=== PATIENT | female | born 1955 | race Caucasian/White ===

== ENCOUNTER 2016-05-20 15:45 | Inpatient (IN) | payer BC, OTHER ==
[2016-05-20] VITALS (7 sets, daily range): BP systolic 95–109; BP diastolic 38–62; PULSE 62–70; TEMP 36.7–37.5; O2SAT 98–100; Ht 175.3 cm; Wt 64.8 kg
[~2016-05-20] VITALS: Ht 175.3 cm; Wt 64.8 kg
[2016-05-20] MEDS ORDERED: HYDR25TA4 PO (16:41)
[2016-05-20] MEDS ORDERED: LISI-791 PO (16:41)
[2016-05-20] MEDS ORDERED: SOY40TAB5 PO (16:42)
[2016-05-20] MEDS ORDERED: POTA1TAB PO (16:44)
[2016-05-20 16:45] LABS: PARTIAL THROMBOPLASTIN RATIO 0.8; PROTHROMBIN TIME (PATIENT) 10.3 SECONDS (9.0-12.0)
[2016-05-20] MEDS ORDERED: OMEG10007 PO (16:45)
[2016-05-20 16:46] LABS: HEMATOCRIT 15.8 % (37-47); MEAN CELL VOLUME 67.5 fL (80-100); MEAN CORPUSCULAR HEMOGLOBIN 16.7 pg (25-34); MEAN CORPUSCULAR HGB CONC 24.7 g/dl (32-36); PLATELET COUNT 286 K/uL (130-400); RED BLOOD COUNT 2.34 M/uL (4.2-5.4); WHITE BLOOD COUNT 5.01 K/uL (4.8-10.8)
[2016-05-20] MEDS ORDERED: MULT-580 PO (16:48)
[2016-05-20] MEDS ORDERED: ALBUTEROL PROAIR INH (16:49)
[2016-05-20] MEDS ORDERED: ZINC25CA PO (16:51)
[2016-05-20] MEDS ORDERED: ONDA4TAB10 SL (16:52)
[2016-05-20 16:54] LABS: ALT/SGPT 22 U/L (12-78); BLOOD UREA NITROGEN 28 mg/dl (7-18); BUN/CREATININE RATIO 28.1 (10-20); CALCIUM 8.3 mg/dl (8.5-10.1); CARBON DIOXIDE 20 mmol/L (21-32); CHLORIDE 106 mmol/L (98-107); GLUCOSE 87 mg/dl (70-99); POTASSIUM 4.2 mmol/L (3.5-5.1); SODIUM 139 mmol/L (136-145)
[2016-05-20] MEDS ORDERED: SIME80TA PO (16:54)
[2016-05-20] MEDS ORDERED: PROM1SUP19 PR (16:55)
[2016-05-20 16:59] LABS: ALKALINE PHOSPHATASE 82 U/L (45-117); AST/SGOT 12 U/L (15-37)
[2016-05-20 17:03] LABS: ANISOCYTOSIS PRESENT; BASO ABS # 0.15 K/uL (0-0.2); COMPLETE YES; EOS % 1.6 %; HYPOCHROMIA PRESENT; IG% 0.4 %; LYMPH % 29.1 %; LYMPH ABS # 1.46 K/uL (1.2-3.4); MICROCYTOSIS PRESENT; MONO % 10.8 %; NEUT % 55.1 %; TEAR DROP CELLS 1+
[2016-05-20] MEDS ORDERED: ACETAMINOPHEN 325 MG TAB PO STA (17:15)
[2016-05-20] MEDS ORDERED: ONDANSETRON INJ 2 MG/ML 2 ML VIAL IV PRN (19:00)
[2016-05-20] MEDS ORDERED: ALBU18002 INH (19:21)
[2016-05-20] MEDS ORDERED: ZINC1TAB PO (19:21)
--- NOTE | 2016-05-20 19:47 | EMERGENCY ROOM VISIT NOTE ---
History Report prepared by Sergio: Audra Rodgers Under the Supervision of: Dr. Tom Fleimng M.D. First contact with patient: 15:54 Chief Complaint: ABNORMAL LABS Stated Complaint: EXTREMELY LOW HEMOGLOBIN History of Present Illness The patient is a 61 year old female who presents to the Emergency Room with complaints of abnormal lab results. She reports she had a fasting blood test this morning and her Hemoglobin was found to be 3.9, so the clinic called her and recommended she come to the ED immediately. She states she had the lab work drawn because of experiencing recent palpitations. She reports she also had an EKG at her doctors office recently, but states it proved to be unremarkable. The patient states she feels well here in the ED. 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 She denies any recent chest pain, shortness of breath or weakness. The patient has a history of gastric bypass surgery in 2002 and lost "over 100 pounds". She reports a coworker did tell her a few months ago that she looked "jaundiced". She denies any recent yellowing to her eyes or noticing any recent changes in her skin color. She denies any recent melena, hematochezia or urinary symptoms. Her urine is normal in color. She states she was diabetic before undergoing gastric bypass, but that has resolved since undergoing the surgery. She denies any recent abdominal pain. 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 A total of 10 systems reviewed and were otherwise negative. Past Medical & Surgical Medical Problems: (1) Dyslipidemia (2) HTN (hypertension) Surgical Problems: (1) History of gastric bypass (2) History of hysterectomy (3) History of Ina-en-Y gastric bypass (4) Hx of tubal ligation Social History Smoking Status: Never Smoker Alcohol Use: occasionally Drug Use: none Marital Status: Housing Status: lives alone Occupation Status: employed Current/Historical Medications Scheduled Fish Oil ([place]-3), 2 CAP PO DAILY Hydrochlorothiazide (Hctz), 25 MG PO DAILY Lisinopril (Zestril), 10 MG PO DAILY Multiple Vitamins W/ Minerals (Hair/Skin/Nails), 2 TABS PO DAILY Ondasetron Odt (Zofran Odt), 8 MG SL Q6H Potassium Gluconate (Potassium Gluconate), 595 MG PO DAILY Soy Isoflavone (Soy Isoflavones), 40 MG PO DAILY Zinc Gluconate (Zinc), 50 MG PO DAILY Scheduled PRN Albuterol Sulfate (Proair Respiclick), 2 PUFF INH Q6H PRN for SOB/Wheezing Promethazine (Phenergan Suppository), 25 MG LA Q6H PRN for Nausea Simethicone (Bicarsim), 80 MG PO QID PRN for Gas or Constipation Allergies Coded Allergies: No Known Allergies (Unverified , 05/20/16) Physical Exam Vital Signs Date Time Temp Pulse Resp B/P Pulse Ox O2 Delivery O2 Flow Rate FiO2 05/20/16 18:53 37.5 67 17 108/50 100 05/20/16 18:30 67 18 105/60 100 Room Air 05/20/16 17:47 75 22 108/55 97 Room Air 05/20/16 17:06 71 19 104/52 99 Room Air 05/20/16 16:34 65 05/20/16 16:19 66 22 94/45 100 Room Air 05/20/16 15:48 37.3 77 15 99/47 98 Room Air Physical Exam Constitutional: Vital signs reviewed. Eyes: Pupils are equal round reactive to light. Conjunctiva are noninjected. ENT: Pharynx is clear without erythema or exudate. Mucous membranes are moist. Neck supple without meningeal signs. Respiratory: Clear to auscultation bilaterally. Breath sounds are equal bilaterally. Cardiovascular: Regular rate and rhythm. No rubs or gallops. GI: Soft, nondistended and nontender. Bowel sounds are present. Rectal: Guaiac negative brown stool. Musculoskeletal: No peripheral edema. No lower extremity tenderness. Integumentary: No cyanosis. Neurological: The patient is awake and alert. No focal deficits. Psychiatric: Normal affect. Medical Decision & Procedures Laboratory Results 05/20/16 16:10 Red Blood Count 2.34, Mean Corpuscular Volume 67.5, Mean Corpuscular Hemoglobin 16.7, Mean Corpuscular Hemoglobin Concent 24.7, Mean Platelet Volume 8.0, Neutrophils (%) (Auto) 55.1, Lymphocytes (%) (Auto) 29.1, Monocytes (%) (Auto) 10.8, Eosinophils (%) (Auto) 1.6, Basophils (%) (Auto) 3.0, Neutrophils # (Auto ) 2.76, Lymphocytes # (Auto) 1.46, Monocytes # (Auto) 0.54, Eosinophils # (Auto ) 0.08, Basophils # (Auto) 0.15 05/20/16 16:10 Test 05/20/16 16:10 05/20/16 18:10 White Blood Count 5.01 K/uL (4.8-10.8) Red Blood Count 2.34 M/uL (4.2-5.4) Hemoglobin 3.9 g/dL (12.0-16.0) Hematocrit 15.8 % (37-47) Mean Corpuscular Volume 67.5 fL (80-100) Mean Corpuscular Hemoglobin 16.7 pg (25-34) Mean Corpuscular Hemoglobin Concent 24.7 g/dl (32-36) Platelet Count 286 K/uL (130-400) Mean Platelet Volume 8.0 fL (7.4-10.4) Neutrophils (%) (Auto) 55.1 % Lymphocytes (%) (Auto) 29.1 % Monocytes (%) (Auto) 10.8 % Eosinophils (%) (Auto) 1.6 % Basophils (%) (Auto) 3.0 % Neutrophils # (Auto) 2.76 K/uL (1.4-6.5) Lymphocytes # (Auto) 1.46 K/uL (1.2-3.4) Monocytes # (Auto) 0.54 K/uL (0.11-0.59) Eosinophils # (Auto) 0.08 K/uL (0-0.5) Basophils # (Auto) 0.15 K/uL (0-0.2) RDW Standard Deviation 64.6 fL (36.4-46.3) RDW Coefficient of Variation 26.9 % (11.5-14.5) Immature Granulocyte % (Auto) 0.4 % Immature Granulocyte # (Auto) 0.02 K/uL (0.00-0.02) Hypochromasia PRESENT Anisocytosis PRESENT Microcytosis PRESENT Tear Drop Cells 1+ Absolute Reticulocyte Count 0.03 10^6/uL (0.02-0.10) Percent Reticulocyte Count 1.3 % (0.5-2.0) Prothrombin Time 10.3 SECONDS (9.0-12.0) Prothromb Time International Ratio 1.0 (0.9-1.1) Activated Partial Thromboplast Time 21.6 SECONDS (21.0-31.0) Partial Thromboplastin Ratio 0.8 Anion Gap 13.0 mmol/L (3-11) Est Creatinine Clear Calc Drug Dose 63.3 ml/min Estimated GFR () 71.4 Estimated GFR (Non- 61.6 BUN/Creatinine Ratio 28.1 (10-20) Calcium Level 8.3 mg/dl (8.5-10.1) Iron Level 10 mcg/dl (35-150) Total Iron Binding Capacity 503 mcg/dl (250-450) Transferrin 389 mg/dl (200-360) Transferrin % Saturation 2 % (15-50) Ferritin 1.0 ng/ml (8.0-388.0) Total Bilirubin 0.4 mg/dl (0.2-1) Direct Bilirubin 0.2 mg/dl (0-0.2) Aspartate Amino Transf (AST/SGOT) 12 U/L (15-37) Alanine Aminotransferase (ALT/SGPT) 22 U/L (12-78) Alkaline Phosphatase 82 U/L (45-117) Troponin I < 0.015 ng/ml (0-0.045) Total Protein 7.1 gm/dl (6.4-8.2) Albumin 3.5 gm/dl (3.4-5.0) 25-Hydroxy Vitamin D Total 8.7 ng/ml (30-100) Parathyroid Hormone (Intact) 212.7 pg/mL (11.1-79.5) Laboratory results as reviewed by me. Medications Administered Medications (Trade) Dose Ordered Sig/Ric Route Start Time Stop Time Status Last Admin Dose Admin Acetaminophen (Tylenol Tab) 650 mg NOW STAT PO 05/20/16 17:15 05/20/16 17:17 DC 05/20/16 17:55 650 MG ECG Indication: other (low Hemoglobin) Rate (beats per minute): 65 Rhythm: normal sinus (normal sinus rhythm) Findings: RBBB (incomplete RBBB), other (limited due to baseline artifact) ED Course 1556: The patient was evaluated in room C6. A complete history and physical exam was performed. 1625: I reevaluated the patient. I discussed her blood test results and explained to her if these are verified with our repeat tests here in the ED, she would need to be admitted to the hospital for further evaluation. She states she does not want to be admitted. 1657: I reevaluated the patient. I had a long discussion with the patient regarding her findings. I strongly recommended admission to the hospital. She continues to decline admission, fully understanding that she could or become permanently debilitated. She does consent to blood transfusion. 1715: Acetaminophen 650 mg PO. 1730: I reevaluated the patient. Her BP has improved, although she is slightly hypotensive. After talking to her son, she has agreed to stay in the hospital. 1742: I discussed the patients case with CRISTHIAN Jung, [facility] Hospitalist. The patient will be further evaluated. 1830: I reevaluated the patient. Her blood pressure is currently 105/60. Blood bank has not sent the blood up yet. The hospitalist is in the room examining the patient. 1925: I reevaluated the patient. Blood is transfusing. Her blood pressure is 95 systolic. The patient has no current complaints and has had no reaction to the transfusion. Medical Decision This is a 61-year-old female presents with a low hemoglobin. I did perform a limited focused review of portions of the patient's old chart on the electronic medical record. The patient has had no recent pertinent visits to this hospital. I did obtain records from the [facility] system. She had a hemoglobin drawn today which was 3.9 at 10:30 this morning. Platelet count was normal. She had markedly hypochromia. She also had LFTs which were unremarkable. She had an exercise stress echocardiogram which she could not complete due to fatigue. She had markedly abnormal horizontal downsloping ST depressions in the inferior leads and lateral leads. There was no left ventricular wall motion abnormality. I did evaluate the patient as noted above. IV access was established. The patient was placed on a continuous sheet metal mechanic. I did order and personally review the patient's 12-lead EKG as described above. After obtaining consent for blood transfusion I did order a type and cross. I did order and review the patient's blood work as noted in the electronic medical record. Her hemoglobin is less than 4. I did order a transfusion for 2 units of blood. I did premedicate her with Tylenol. I did reassess her multiple times while in the emergency department. She did begin her transfusion down here in the emergency department. I did have a long discussion with her about hospitalization. Initially she didn't want to stay in the hospital but later acquiesced. I did discuss the case with the hospitalist and trimming caser. Consults Time Called: 1738 Consulting Physician: C[facility]HIAN Jung [facility] Returned Call: 1742 I discussed the patients case with CRISTHIAN Jung [facility]. The patient will be further evaluated. Impression Primary Impression: Symptomatic anemia Additional Impression: Hypotension Critical Care I have personally spent 35 minutes of critical care time in the direct management of this patient. This includes bedside care, interpretation of diagnostic studies, and testing, discussion with consultants, patient, and family members, and other required patient management activities. This 35 minutes is in excess of all separately billable procedures. Scribe Attestation The scribe's documentation has been prepared under my direct and personally reviewed by me in its entirety. I confirm that the note above accurately reflects all work, treatment, procedures, and medical decision making performed by me. Departure Information Dispostion Being Evaluated By Hospitalist Referrals No Doctor, Assigned (PCP) Patient Instructions My [facility] Problem Qualifiers Additional Impression: Hypotension Hypotension type: unspecified hypotension type Qualified Codes: I95.9 - Hypotension, unspecified
--- NOTE | 2016-05-20 20:23 | History and Physical ---
History & Physical Date & Time of Service: May 20, 2016 at 19:45 Chief Complaint: Sent by PCP for Low Hemoglobin Primary Care Physician: Dr. Salazar History of Present Illness 61 year old female who presents to the ER by referral of PCP for low hemoglobin. Patient reports she has been getting palpitations for the past 2 years. She reports she only noted them with exertion. She was seen by her PCP recently for this complaint. She was referred to cardiology who did a stress test and holter. Holter monitor showed PACs, PVCs, and two short runs of PSVT. Patient was unable to complete the test and also had ST depressions noted. Patient was then scheduled for a cardiac CT. Patient had labs drawn today that were ordered by her PCP that showed hgb 3.9. Patient was then referred to the ER for further evaluation. Patient notes a mild decrease in her activity tolerance but aside from the palpitations she denies other symptoms. No chest pain or chest pressure. She developed lower extremity edema last year and was placed on HCTZ and low Na+ diet and had improvement in the edema. She notes a 20 pound weight loss last year after making the dietary changes. She denies shortness of breath, lightheadedness, dizziness, diaphoresis, or syncopal events. No abdominal pain, nausea, vomiting, diarrhea, or constipation. She notes that after decreasing her salt intake last year, her stools are now anesthesiology medical doctor in color and softer. No BRBPR or dark tarry stools. No fever or chills. She denies urinary symptoms. No recent travel. She had her last mammogram 2015. Last colonoscopy was in 2009. She has history of gastric bypass and has not had B12 injections in several years. In the ER, labs show hgb 3.9. Patient is hemodynamically stable. She has been ordered 2 units of PRBC. Past Medical/Surgical History Medical Problems: (1) Dyslipidemia Status: Chronic (2) HTN (hypertension) Status: Chronic (3) PSVT (paroxysmal supraventricular tachycardia) Status: Chronic Surgical Problems: (1) History of hysterectomy Status: Chronic (2) History of Ina-en-Y gastric bypass Status: Chronic (3) Hx of tubal ligation Status: Chronic Family History FH: liver cancer FATHER ( at age 70) FH: lung cancer MOTHER ( at age 48, was heavy smoker) Social History Smoking Status: Never Smoker Alcohol Use: none Immunizations History of Influenza Vaccine: Yes Influenza Vaccine Date: Dec 13, 2015 History of Tetanus Vaccine?: Yes Tetanus Immunization Date: Jun 17, 2008 Multi-Drug Resistant Organisms History of MDRO: No Allergies Coded Allergies: No Known Allergies (Unverified , 05/20/16) Home Medications Scheduled Fish Oil ([place]-3), 2 CAP PO DAILY Hydrochlorothiazide (Hctz), 25 MG PO DAILY Lisinopril (Zestril), 10 MG PO DAILY Multiple Vitamins W/ Minerals (Hair/Skin/Nails), 2 TABS PO DAILY Ondasetron Odt (Zofran Odt), 8 MG SL Q6H Potassium Gluconate (Potassium Gluconate), 595 MG PO DAILY Soy Isoflavone (Soy Isoflavones), 40 MG PO DAILY Zinc Gluconate (Zinc), 50 MG PO DAILY Scheduled PRN Albuterol Sulfate (Proair Respiclick), 2 PUFF INH Q6H PRN for SOB/Wheezing Promethazine (Phenergan Suppository), 25 MG PA Q6H PRN for Nausea Simethicone (Bicarsim), 80 MG PO QID PRN for Gas or Constipation Review of Systems 10 point review of systems was completed with the pertinent positives and negatives noted per the HPI Physical Exam Vital Signs Date Time Temp Pulse Resp B/P Pulse Ox O2 Delivery O2 Flow Rate FiO2 05/20/16 19:25 37.0 65 17 109/54 99 05/20/16 19:14 37.0 70 16 95/47 98 05/20/16 19:00 37.3 67 14 106/40 98 05/20/16 18:53 37.5 67 17 108/50 100 05/20/16 18:30 67 18 105/60 100 Room Air 05/20/16 17:47 75 22 108/55 97 Room Air 05/20/16 17:06 71 19 104/52 99 Room Air 05/20/16 16:34 65 05/20/16 16:19 66 22 94/45 100 Room Air 05/20/16 15:48 37.3 77 15 99/47 98 Room Air General Appearance: no apparent distress Head: normocephalic Eyes: normal inspection ENT: hearing grossly normal Neck: supple, no JVD Respiratory/Chest: lungs clear, normal breath sounds, no respiratory distress Cardiovascular: regular rate, rhythm, no edema, normal peripheral pulses Abdomen/GI: normal bowel sounds, non tender, soft Extremities/Musculoskelatal: normal inspection, no calf tenderness Neurologic/Psych: no motor/sensory deficits, alert, normal mood/affect, oriented x 3 Skin: normal color, warm/dry Diagnostics Laboratory Results Results Past 24 Hours Test 05/20/16 16:10 05/20/16 18:10 Range/Units White Blood Count 5.01 4.8-10.8 K/uL Red Blood Count 2.34 4.2-5.4 M/uL Hemoglobin 3.9 12.0-16.0 g/dL Hematocrit 15.8 37-47 % Mean Corpuscular Volume 67.5 80-100 fL Mean Corpuscular Hemoglobin 16.7 25-34 pg Mean Corpuscular Hemoglobin Concent 24.7 32-36 g/dl Platelet Count 286 130-400 K/uL Mean Platelet Volume 8.0 7.4-10.4 fL Neutrophils (%) (Auto) 55.1 % Lymphocytes (%) (Auto) 29.1 % Monocytes (%) (Auto) 10.8 % Eosinophils (%) (Auto) 1.6 % Basophils (%) (Auto) 3.0 % Neutrophils # (Auto) 2.76 1.4-6.5 K/uL Lymphocytes # (Auto) 1.46 1.2-3.4 K/uL Monocytes # (Auto) 0.54 0.11-0.59 K/uL Eosinophils # (Auto) 0.08 0-0.5 K/uL Basophils # (Auto) 0.15 0-0.2 K/uL RDW Standard Deviation 64.6 36.4-46.3 fL RDW Coefficient of Variation 26.9 11.5-14.5 % Immature Granulocyte % (Auto) 0.4 % Immature Granulocyte # (Auto) 0.02 0.00-0.02 K/uL Hypochromasia PRESENT Anisocytosis PRESENT Microcytosis PRESENT Tear Drop Cells 1+ Absolute Reticulocyte Count 0.03 0.02-0.10 10^6/uL Percent Reticulocyte Count 1.3 0.5-2.0 % Prothrombin Time 10.3 9.0-12.0 SECONDS Prothromb Time International Ratio 1.0 0.9-1.1 Activated Partial Thromboplast Time 21.6 21.0-31.0 SECONDS Partial Thromboplastin Ratio 0.8 Sodium Level 139 136-145 mmol/L Potassium Level 4.2 3.5-5.1 mmol/L Chloride Level 106 98-107 mmol/L Carbon Dioxide Level 20 21-32 mmol/L Anion Gap 13.0 3-11 mmol/L Blood Urea Nitrogen 28 7-18 mg/dl Creatinine 1.00 0.60-1.20 mg/dl Est Creatinine Clear Calc Drug Dose 63.3 ml/min Estimated GFR () 71.4 Estimated GFR (Non- 61.6 BUN/Creatinine Ratio 28.1 10-20 Random Glucose 87 70-99 mg/dl Calcium Level 8.3 8.5-10.1 mg/dl Iron Level 10 35-150 mcg/dl Total Iron Binding Capacity 503 250-450 mcg/dl Transferrin 389 200-360 mg/dl Transferrin % Saturation 2 15-50 % Ferritin 1.0 8.0-388.0 ng/ml Total Bilirubin 0.4 0.2-1 mg/dl Direct Bilirubin 0.2 0-0.2 mg/dl Aspartate Amino Transf (AST/SGOT) 12 15-37 U/L Alanine Aminotransferase (ALT/SGPT) 22 12-78 U/L Alkaline Phosphatase 82 45-117 U/L Troponin I < 0.015 0-0.045 ng/ml Total Protein 7.1 6.4-8.2 gm/dl Albumin 3.5 3.4-5.0 gm/dl 25-Hydroxy Vitamin D Total 8.7 30-100 ng/ml Parathyroid Hormone (Intact) 212.7 11.1-79.5 pg/mL Impression Assessment and Plan PROFOUND ANEMIA - admit to tele - patient presenting with history of palpitations for 2 years; outpatient labs showed hgb 3.9 - patient hemodynamically stable - iron studies complete that support MOOKIE - last colonoscopy 2009 - hemorrhoids, 1 polyp removed (negative path) - hx of gastric bypass - malabsorption likely contributing - will start with 2 units PRBC, follow H/H post transfusion - stool heme negative in ED, will start empiric PPI BID VIT D DEFICIENCY - start replacement - PTH noted to be high, likely due to low Vit D - 50,000 units twice weekly x 12 doses; can recheck PTH once Vit D replaced HTN - BP on the lower side due to hypovolemia - holding HCTZ and Lisinopril ABNORMAL STRESS TEST, PSVT - hx of recent stress test - was unable to complete and had ST depressions noted (? due to profound anemia) - has outpatient cardiac CT scheduled - on Holter patient had PACs, PVCs, and short run of PSVT - per review of record , patient was instructed to stop Lisinopril and start metoprolol succinate - she has not made this medication change yet - will need to re-evaluate the above once patient's hgb is improved DVT PROPHYLAXIS - SCDs due to anemia DISPO - In my clinical judgment this beneficiary meets acute admission criteria, established by [facility], that includes being hospitalized through two midnights. ADDENDUM: I have seen and examined the patient and have discussed the case with the provider above. I agree with the assessment and plan as stated. This is consistent with a chronic process as the patient admits to not feeling well for two years now. No active bleeding reported and there is hemodynamic stability. She is severely iron deficient. Annual labs post-bariatric surgery have not been checked in several years. All ordered except for zinc and copper as patient is on supplementation. GI consult placed for the following reasons-- appreciate consider endoscopy for quick view of surgical anastomoses, or other source of chronic bleed, ease of quick biopsy for H pylori. Agree with transfusing two units and holding two until reassessment. She is otherwise asymptomatic without chest pain, shortness of breath or significant fatigue. Physical exam is unremarkable. DO Luis Level of Care Telemetry Resuscitation Status FULL RESUSCITATION VTE Prophylaxis VTE Risk Assessment Done? Y/N: Yes Risk Level: Moderate Given or contraindicated: SCD's, Contraindicated Social Service Consult None Apply
[2016-05-20] MEDS ORDERED: ERGOCALCIFEROL 50,000 INTER.UNIT CAP PO SCH (21:00)
[2016-05-20] MEDS ORDERED: ACETAMINOPHEN 325 MG TAB PO PRN (21:00)
[2016-05-20] MEDS: PANTOprazole INJ 40 MG in SYRINGE 0 ML IV SCH (21:04)
[2016-05-21] VITALS (18 sets, daily range): BP systolic 93–115; BP diastolic 41–69; PULSE 50–62; TEMP 36.5–37.3; O2SAT 97–100
[2016-05-21 00:12] LABS: HEMATOCRIT 19.1 % (37-47)
[2016-05-21 07:44] LABS: HEMATOCRIT 24.9 % (37-47); MEAN CELL VOLUME 74.1 fL (80-100); MEAN CORPUSCULAR HEMOGLOBIN 22.6 pg (25-34); MEAN CORPUSCULAR HGB CONC 30.5 g/dl (32-36); MEAN PLATELET VOLUME 8.1 fL (7.4-10.4); PLATELET COUNT 169 K/uL (130-400); RED BLOOD COUNT 3.36 M/uL (4.2-5.4); WHITE BLOOD COUNT 4.45 K/uL (4.8-10.8)
[2016-05-21] MEDS ORDERED: PNEUMOCOCCAL ADMINISTRATION CHARGE ONE (08:00)
[2016-05-21] MEDS ORDERED: INFLUENZA VIRUS QUAD VACCINE 0.5 ML SYR IM. ONE (08:00)
[2016-05-21] MEDS ORDERED: PNEUMOCOCCAL POLYSACCHARIDES 25 MCG/0.5 ML VIAL/SYR IM. ONE (08:00)
[2016-05-21] MEDS ORDERED: INFLUENZA ADMINISTRATION CHARGE ONE (08:00)
[2016-05-21 08:11] LABS: BUN/CREATININE RATIO 27.1 (10-20); CALCIUM 8.1 mg/dl (8.5-10.1); CREATININE 0.8 mg/dl (0.60-1.20); POTASSIUM 4.4 mmol/L (3.5-5.1)
[2016-05-21] MEDS: OMEGA-3 (PURIFIED FISH OIL) 1 GM CAP PO SCH (08:15)
[2016-05-21] MEDS: PANTOprazole INJ 40 MG in SYRINGE 0 ML IV SCH (08:15)
[2016-05-21] MEDS: CEROVITE ADV FORMULA TAB PO SCH (08:15)
[2016-05-21] MEDS ORDERED: IRON DEXTRAN IV ONE (10:45)
--- NOTE | 2016-05-21 11:19 | Progress Note ---
Internal Med Progress Note Date of Service: May 21, 2016. Provider Documentation: SUBJECTIVE: Patient is doing well. Denies any complaints of palpitations, SOB, Fatigue (Not worse from baseline) Says she doesn't feel much different from prior to admission after blood transfusions and HB going up OBJECTIVE: Vital Signs-as noted below Exam: General-AAOX3, no distress Eyes-Pallor +, No icterus Neck-Supple, NO JVD Lungs-AEBE, no distress Heart-S1, S2 normal, no murmurs Abdomen-Soft, non tender, non distended, BS present Extremities-No edema Lab data as noted below. ASSESSMENT & PLAN: SEVERE IRON DEFICIENCY ANEMIA : Patient was sent from PCP office for HB 3.9. Patient had gastric bypass done in 2002, does not follow up regularly with PCP, doesnt take supplements. Iron studies supportive of Iron deficiency anemia with Ferritin - 1, Iron-10, TIBC -500. Likely this is secondary to malabsorption secondary to gastric bypass with inadequate PCP and Labs follow up. Given the fact she is not much symptomatic with HB 3.9, this has been going on for a long time. No signs of GI bleeding -S/P 4 units PRBCs since admission --> HB 7.6 -Will give IV Venofer x 1 dose today due to malabsorption issue/severity of iron deficiency anemia -Work up- Iron studies as above--> Iron deficiency, Vit D 8.7 with PTH 212, Vitamin B12-393, Colonoscopy in 2009- 1 polyp removed, hemorrhoids. No signs of active bleeding, but would consider Endoscopy/Colonoscopy outpatient if anemia persists. 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 -Recommended regular outpatient blood work/PCP follow ups. Counseling done HTN : - BP on the lower side due to hypovolemia - holding HCTZ and Lisinopril ABNORMAL STRESS TEST, PSVT : - hx of recent stress test - was unable to complete and had ST depressions noted (? due to profound anemia) - has outpatient cardiac CT scheduled - on Holter patient had PACs, PVCs, and short run of PSVT - per review of record , patient was instructed to stop Lisinopril and start metoprolol succinate - she has not made this medication change yet - Outpatient work up /follow up DVT PROPHYLAXIS : - SCDs due to anemia DISPOSITION : - Ok to transfer to [facility]-surg - Monitor Vital Signs: Date Time Temp Pulse Resp B/P Pulse Ox O2 Delivery O2 Flow Rate FiO2 05/21/16 08:00 Room Air 05/21/16 07:58 36.6 53 18 115/69 100 Room Air 05/21/16 05:30 37.3 53 18 94/52 97 05/21/16 05:00 37.2 62 20 95/52 97 05/21/16 04:30 37.3 58 18 101/62 98 05/21/16 04:15 37.0 54 20 108/63 97 05/21/16 04:00 Room Air 05/21/16 03:34 36.7 56 16 102/51 99 05/21/16 03:07 36.8 56 15 100/55 100 Room Air 05/21/16 01:35 60 17 95/46 98 05/21/16 01:35 60 17 95/46 98 05/21/16 01:05 36.8 62 17 104/44 98 05/21/16 00:55 37.2 59 15 95/48 98 05/21/16 00:40 37.3 59 20 94/51 97 05/21/16 00:11 37.0 58 15 93/46 98 Room Air 05/21/16 00:00 Room Air 05/20/16 21:25 37.1 63 20 95/38 99 05/20/16 21:02 36.7 62 18 99/62 100 05/20/16 20:00 Room Air 05/20/16 19:59 Room Air 05/20/16 19:25 37.0 65 17 109/54 99 05/20/16 19:14 37.0 70 16 95/47 98 05/20/16 19:00 37.3 67 14 106/40 98 05/20/16 18:53 37.5 67 17 108/50 100 05/20/16 18:30 67 18 105/60 100 Room Air 05/20/16 17:47 75 22 108/55 97 Room Air 05/20/16 17:06 71 19 104/52 99 Room Air 05/20/16 16:34 65 05/20/16 16:19 66 22 94/45 100 Room Air 05/20/16 15:48 37.3 77 15 99/47 98 Room Air Lab Results: Results Past 24 Hours Test 05/20/16 16:10 05/20/16 18:10 05/20/16 23:50 05/21/16 07:30 Range/Units White Blood Count 5.01 4.45 4.8-10.8 K/uL Red Blood Count 2.34 3.36 4.2-5.4 M/uL Hemoglobin 3.9 5.5 7.6 12.0-16.0 g/dL Hematocrit 15.8 19.1 24.9 37-47 % Mean Corpuscular Volume 67.5 74.1 80-100 fL Mean Corpuscular Hemoglobin 16.7 22.6 25-34 pg Mean Corpuscular Hemoglobin Concent 24.7 30.5 32-36 g/dl Platelet Count 286 169 130-400 K/uL Mean Platelet Volume 8.0 8.1 7.4-10.4 fL Neutrophils (%) (Auto) 55.1 % Lymphocytes (%) (Auto) 29.1 % Monocytes (%) (Auto) 10.8 % Eosinophils (%) (Auto) 1.6 % Basophils (%) (Auto) 3.0 % Neutrophils # (Auto) 2.76 1.4-6.5 K/uL Lymphocytes # (Auto) 1.46 1.2-3.4 K/uL Monocytes # (Auto) 0.54 0.11-0.59 K/uL Eosinophils # (Auto) 0.08 0-0.5 K/uL Basophils # (Auto) 0.15 0-0.2 K/uL RDW Standard Deviation 64.6 65.2 36.4-46.3 fL RDW Coefficient of Variation 26.9 24.4 11.5-14.5 % Immature Granulocyte % (Auto) 0.4 % Immature Granulocyte # (Auto) 0.02 0.00-0.02 K/uL Hypochromasia PRESENT Anisocytosis PRESENT Microcytosis PRESENT Tear Drop Cells 1+ Absolute Reticulocyte Count 0.03 0.02-0.10 10^6/uL Percent Reticulocyte Count 1.3 0.5-2.0 % Prothrombin Time 10.3 9.0-12.0 SECONDS Prothromb Time International Ratio 1.0 0.9-1.1 Activated Partial Thromboplast Time 21.6 21.0-31.0 SECONDS Partial Thromboplastin Ratio 0.8 Sodium Level 139 141 136-145 mmol/L Potassium Level 4.2 4.4 3.5-5.1 mmol/L Chloride Level 106 111 98-107 mmol/L Carbon Dioxide Level 20 21 21-32 mmol/L Anion Gap 13.0 9.0 3-11 mmol/L Blood Urea Nitrogen 28 22 7-18 mg/dl Creatinine 1.00 0.80 0.60-1.20 mg/dl Est Creatinine Clear Calc Drug Dose 63.3 77.5 ml/min Estimated GFR () 71.4 93.5 Estimated GFR (Non- 61.6 80.7 BUN/Creatinine Ratio 28.1 27.1 10-20 Random Glucose 87 86 70-99 mg/dl Calcium Level 8.3 8.1 8.5-10.1 mg/dl Iron Level 10 35-150 mcg/dl Total Iron Binding Capacity 503 250-450 mcg/dl Transferrin 389 200-360 mg/dl Transferrin % Saturation 2 15-50 % Ferritin 1.0 8.0-388.0 ng/ml Total Bilirubin 0.4 0.2-1 mg/dl Direct Bilirubin 0.2 0-0.2 mg/dl Aspartate Amino Transf (AST/SGOT) 12 15-37 U/L Alanine Aminotransferase (ALT/SGPT) 22 12-78 U/L Alkaline Phosphatase 82 45-117 U/L Troponin I < 0.015 0-0.045 ng/ml Total Protein 7.1 6.4-8.2 gm/dl Albumin 3.5 3.4-5.0 gm/dl 25-Hydroxy Vitamin D Total 8.7 30-100 ng/ml Parathyroid Hormone (Intact) 212.7 11.1-79.5 pg/mL Vitamin B12 Level 393 211-911 pg/mL Folate 17.83 >5.38 ng/mL
[2016-05-21] MEDS ORDERED: IRON SUCROSE IV SCH (11:30)
[2016-05-21] MEDS ORDERED: SODIUM CHLORIDE 0.9% IV SCH (11:30)
[2016-05-21] MEDS: FERROUS SULFATE 325 MG TAB PO SCH (17:15)
--- NOTE | 2016-05-21 17:34 | Medical Consult ---
Consultation Note Date of Service May 21, 2016. Consultation Note Reason for consult: iron def anemia History of Present Illness 61 year old female h/o RYGB 2002 presents with palpitations, found to have Hgb 3.9 and MCV 67, ferritin of 1. 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 She has LE edema, but o/w no CHF symptoms. She denies any GI symptoms - no dark stool, rectal bleeding, abd pain, heartburn. She does take Ibuprofen regularly; she does not take iron or B12. VS on presentation unremarkable. She has received 4 U PRBC and Venofer. She had csocpy in 2009. Past Medical/Surgical History Medical Problems: (1) Dyslipidemia Status: Chronic (2) HTN (hypertension) Status: Chronic (3) PSVT (paroxysmal supraventricular tachycardia) Status: Chronic Surgical Problems: (1) History of hysterectomy Status: Chronic (2) History of Ina-en-Y gastric bypass Status: Chronic (3) Hx of tubal ligation Status: Chronic Family History FH: liver cancer FATHER ( at age 70) FH: lung cancer MOTHER ( at age 48, was heavy smoker) Social History Smoking Status: Never Smoker Alcohol Use: none Immunizations History of Influenza Vaccine: Yes Influenza Vaccine Date: Dec 13, 2015 History of Tetanus Vaccine?: Yes Tetanus Immunization Date: Jun 17, 2008 Multi-Drug Resistant Organisms History of MDRO: No Allergies Coded Allergies: No Known Allergies (Unverified , 05/20/16) Home Medications Scheduled Fish Oil ([place]-3), 2 CAP PO DAILY Hydrochlorothiazide (Hctz), 25 MG PO DAILY Lisinopril (Zestril), 10 MG PO DAILY Multiple Vitamins W/ Minerals (Hair/Skin/Nails), 2 TABS PO DAILY Ondasetron Odt (Zofran Odt), 8 MG SL Q6H Potassium Gluconate (Potassium Gluconate), 595 MG PO DAILY Soy Isoflavone (Soy Isoflavones), 40 MG PO DAILY Zinc Gluconate (Zinc), 50 MG PO DAILY Scheduled PRN Albuterol Sulfate (Proair Respiclick), 2 PUFF INH Q6H PRN for SOB/Wheezing Promethazine (Phenergan Suppository), 25 MG MA Q6H PRN for Nausea Simethicone (Bicarsim), 80 MG PO QID PRN for Gas or Constipation Review of Systems 10 point review of systems was completed with the pertinent positives and negatives noted per the HPI Physical Ex - H&P Physical Exam Vital Signs Vital Signs Past 12 Hours Date Time Temp Pulse Resp B/P Pulse Ox O2 Delivery O2 Flow Rate FiO2 05/21/16 16:00 Room Air 05/21/16 15:39 37.0 58 16 111/53 99 Room Air 05/21/16 13:50 36.8 53 14 106/62 97 Room Air 05/21/16 13:32 37.2 50 19 100 05/21/16 12:04 37.2 50 19 105/61 100 Room Air 05/21/16 12:00 Room Air 05/21/16 08:00 Room Air 05/21/16 07:58 36.6 53 18 115/69 100 Room Air General Appearance: no apparent distress Head: normocephalic Eyes: normal inspection ENT: hearing grossly normal Neck: supple, no JVD Respiratory/Chest: lungs clear, normal breath sounds, no respiratory distress Cardiovascular: regular rate, rhythm, no edema, normal peripheral pulses Abdomen/GI: normal bowel sounds, non tender, soft Extremities/Musculoskelatal: normal inspection, no calf tenderness Neurologic/Psych: no motor/sensory deficits, alert, normal mood/affect, oriented x 3 Skin: normal color, warm/dry Diagnostics - H&P Diagnostics Laboratory Results Last 24 Hours Test 05/20/16 18:10 05/20/16 23:50 05/21/16 07:30 25-Hydroxy Vitamin D Total 8.7 ng/ml Parathyroid Hormone (Intact) 212.7 pg/mL Hemoglobin 5.5 g/dL 7.6 g/dL Hematocrit 19.1 % 24.9 % White Blood Count 4.45 K/uL Red Blood Count 3.36 M/uL Mean Corpuscular Volume 74.1 fL Mean Corpuscular Hemoglobin 22.6 pg Mean Corpuscular Hemoglobin Concent 30.5 g/dl RDW Standard Deviation 65.2 fL RDW Coefficient of Variation 24.4 % Platelet Count 169 K/uL Mean Platelet Volume 8.1 fL Sodium Level 141 mmol/L Potassium Level 4.4 mmol/L Chloride Level 111 mmol/L Carbon Dioxide Level 21 mmol/L Anion Gap 9.0 mmol/L Blood Urea Nitrogen 22 mg/dl Creatinine 0.80 mg/dl Est Creatinine Clear Calc Drug Dose 77.5 ml/min Estimated GFR () 93.5 Estimated GFR (Non- 80.7 BUN/Creatinine Ratio 27.1 Random Glucose 86 mg/dl Calcium Level 8.1 mg/dl Vitamin B12 Level 393 pg/mL Folate 17.83 ng/mL Impression - H&P Impression Assessment and Plan PROFOUND ANEMIA - Presumably secondary to Fe malabsorption. Plan EGD tomorrow to r/o anastamotic ulcer. Anticipate d/c home afterwards. Plan for outpt csocpy. - Please give parenteral B12.
[2016-05-22 06:56] LABS: HEMATOCRIT 25.5 % (37-47); MEAN CELL VOLUME 76.8 fL (80-100); MEAN CORPUSCULAR HEMOGLOBIN 23.2 pg (25-34); MEAN CORPUSCULAR HGB CONC 30.2 g/dl (32-36); MEAN PLATELET VOLUME 8.7 fL (7.4-10.4); PLATELET COUNT 156 K/uL (130-400); RED BLOOD COUNT 3.32 M/uL (4.2-5.4)
[2016-05-22 07:11] VITALS: BP 107/47; PULSE 56; TEMP 37.3; O2SAT 98
[2016-05-22 07:45] LABS: BUN/CREATININE RATIO 18.6 (10-20); CALCIUM 8.3 mg/dl (8.5-10.1); CREATININE 0.71 mg/dl (0.60-1.20)
[2016-05-22] MEDS: FERROUS SULFATE 325 MG TAB PO SCH (08:41)
[2016-05-22] MEDS: OMEGA-3 (PURIFIED FISH OIL) 1 GM CAP PO SCH (08:44)
[2016-05-22] MEDS: CEROVITE ADV FORMULA TAB PO SCH (08:44)
[2016-05-22] MEDS ORDERED: IRON SUCROSE INJ 100 MG in SODIUM CHLORIDE 0.9% 100ML 100 ML IV SCH (11:00)
[2016-05-22] MEDS ORDERED: PANTOprazole INJ 40 MG in SYRINGE 0 ML IV SCH (11:00)
--- NOTE | 2016-05-22 11:20 | GI REPORT ---
Procedure Date: 05/22/2016 10:59 AM Procedure: Upper GI endoscopy Indications: Iron deficiency anemia Medicines: See the Anesthesia note for documentation of the administered medications Complications: No immediate complications. Estimated Blood Loss: Estimated blood loss: none. Procedure: Pre-Anesthesia Assessment: - ASA Grade Assessment: III - A patient with severe systemic disease. After obtaining informed consent, the endoscope was passed under direct vision. Throughout the procedure, the patient's blood pressure, pulse, and oxygen saturations were monitored continuously. The scope was introduced through the mouth, and advanced to the afferent and efferent jejunal loops. The upper GI endoscopy was accomplished without difficulty. The patient tolerated the procedure well. Findings: The examined esophagus was normal. Normal gastric pouch. There was an unremarkable gastroenteric anastamosis. The small intestine was normal. Impression: - Normal post gastric bypass anatomy. No evidence of anastamotic ulcer. Recommendation: - Discharge patient to floor. Check Hp serology and serology for celiac sprue. Sparkle London M.D. Sparkle London MD 05/22/2016 11:20:03 AM This report has been signed electronically. Note Initiated On: 05/22/2016 10:59 AM I attest to the content of the Intraoperative Record and orders documented therein, exceptions below
--- NOTE | 2016-05-22 11:35 | Anesthesiology Progress Note ---
Anesthesia Post Op Note Date & Time May 22, 2016 at 11:34 Vital Signs Pain Intensity: 0 Vital Signs Past 12 Hours Date Time Temp Pulse Resp B/P Pulse Ox O2 Delivery O2 Flow Rate FiO2 05/22/16 11:20 51 20 111/57 99 Room Air 05/22/16 10:25 37.1 53 20 113/61 100 Room Air 05/22/16 09:49 Room Air 05/22/16 07:11 37.3 56 16 107/47 98 Room Air 05/22/16 00:00 Room Air 05/21/16 23:49 57 111/65 Notes Mental Status: alert / awake / arousable, participated in evaluation Pt Amnestic to Procedure: Yes Nausea / Vomiting: adequately controlled Pain: adequately controlled Airway Patency, RR, SpO2: stable & adequate BP & HR: stable & adequate Hydration State: stable & adequate Anesthetic Complications: no major complications apparent
--- NOTE | 2016-05-22 11:49 | Progress Note ---
Progress Note Date of Service May 22, 2016. Progress Note EGD without anastamotic ulcer. Will arrange for out pt cscopy. OK for d/c today, if ok with primary service. Please d/c home on iron supplements, Folate , b12. There is no need for PPI therapy. Will check labs for Hp, copper level, and celiac sprue as outpt.
--- NOTE | 2016-05-22 13:03 | Progress Note ---
Internal Med Progress Note Date of Service: May 22, 2016. Provider Documentation: SUBJECTIVE: Patient is doing well and eager to be discharged due to concern about snow storm. Denies any complaints of palpitations, SOB, Fatigue (Not worse from baseline) Says she doesn't feel much different from prior to admission after blood transfusions and HB going up S/P EGD today and tolerating PO well OBJECTIVE: Vital Signs-as noted below Exam: General-AAOX3, no distress Eyes-Pallor +, No icterus Neck-Supple, NO JVD Lungs-AEBE, no distress Heart-S1, S2 normal, no murmurs Abdomen-Soft, non tender, non distended, BS present Extremities-No edema Lab data as noted below. ASSESSMENT & PLAN: SEVERE IRON DEFICIENCY ANEMIA : Patient was sent from PCP office for HB 3.9. Patient had gastric bypass done in 2002, does not follow up regularly with PCP, doesn't take supplements. Iron studies supportive of Iron deficiency anemia with Ferritin - 1, Iron-10, TIBC -500. Likely this is secondary to malabsorption secondary to gastric bypass with inadequate PCP and Labs follow up. Given the fact she is not much symptomatic with HB 3.9, this has been going on for a long time. No signs of GI bleeding -S/P 4 units PRBCs since admission --> HB 7.6-->7.7. Will transfuse one more unit PRBC today. -S/P EGD today- no anastomotic ulcer. GI will do Celiac sprue/Hp serology/ Copper level outpatient. Colonoscopy outpatient -Will give IV Venofer x 2nd dose today due to malabsorption issue/severity of iron deficiency anemia. To be discharged on Ferrous sulphate 325 mg PO BID, Folic acid 1 mg daily, Vitamin B12- 1000 mcg daily -Work up- Iron studies as above--> Iron deficiency, Vit D 8.7 with PTH 212, Vitamin B12-393, Colonoscopy in 2009- 1 polyp removed, hemorrhoids. No signs of active bleeding. 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 -Iron, Vit B12, Folic acid, Vit D supplements to be given on discharge. -Recommended regular outpatient blood work/PCP follow ups. Counseling done HTN : - BP on the lower side due to hypovolemia - holding HCTZ and Lisinopril and no indication on discharge as BP < 110 throughout hospital course ABNORMAL STRESS TEST, PSVT : - hx of recent stress test - was unable to complete and had ST depressions noted (? due to profound anemia) - has outpatient cardiac CT scheduled - on Holter patient had PACs, PVCs, and short run of PSVT - per review of record , patient was instructed to stop Lisinopril and start metoprolol succinate - she has not made this medication change yet - Outpatient work up /follow up DVT PROPHYLAXIS : - SCDs due to anemia DISPOSITION : Eager to be discharged Ok to discharge home after 1 unit PRBC transfusion/Venofer dose Vital Signs: Date Time Temp Pulse Resp B/P Pulse Ox O2 Delivery O2 Flow Rate FiO2 05/22/16 11:35 55 20 112/63 100 Room Air 05/22/16 11:20 51 20 111/57 99 Room Air 05/22/16 10:25 37.1 53 20 113/61 100 Room Air 05/22/16 09:49 Room Air 05/22/16 07:11 37.3 56 16 107/47 98 Room Air 05/22/16 00:00 Room Air 05/21/16 23:49 57 111/65 05/21/16 23:03 36.5 59 18 97/41 98 Room Air 101/41 05/21/16 21:25 Room Air 05/21/16 20:00 Room Air 05/21/16 16:00 Room Air 05/21/16 15:39 37.0 58 16 111/53 99 Room Air 05/21/16 13:50 36.8 53 14 106/62 97 Room Air 05/21/16 13:32 37.2 50 19 100 Lab Results: Results Past 24 Hours Test 05/22/16 06:35 Range/Units White Blood Count 4.40 4.8-10.8 K/uL Red Blood Count 3.32 4.2-5.4 M/uL Hemoglobin 7.7 12.0-16.0 g/dL Hematocrit 25.5 37-47 % Mean Corpuscular Volume 76.8 80-100 fL Mean Corpuscular Hemoglobin 23.2 25-34 pg Mean Corpuscular Hemoglobin Concent 30.2 32-36 g/dl RDW Standard Deviation 68.8 36.4-46.3 fL RDW Coefficient of Variation 24.8 11.5-14.5 % Platelet Count 156 130-400 K/uL Mean Platelet Volume 8.7 7.4-10.4 fL Sodium Level 142 136-145 mmol/L Potassium Level 4.0 3.5-5.1 mmol/L Chloride Level 109 98-107 mmol/L Carbon Dioxide Level 24 21-32 mmol/L Anion Gap 9.0 3-11 mmol/L Blood Urea Nitrogen 13 7-18 mg/dl Creatinine 0.71 0.60-1.20 mg/dl Est Creatinine Clear Calc Drug Dose 87.3 ml/min Estimated GFR () 108.1 Estimated GFR (Non- 93.2 BUN/Creatinine Ratio 18.6 10-20 Random Glucose 89 70-99 mg/dl Calcium Level 8.3 8.5-10.1 mg/dl
[2016-05-22] MEDS ORDERED: VTMD PO (13:07)
[2016-05-22] MEDS ORDERED: FLV1 PO (13:07)
[2016-05-22] MEDS ORDERED: CYAN100028 PO (13:07)
[2016-05-22] MEDS ORDERED: FRRS300 PO (13:07)
--- NOTE | 2016-05-22 13:11 | Discharge Instructions ---
Discharge Instructions Date of Service May 22, 2016. Admission Reason for Admission: Anemia Discharge Discharge Diagnosis / Problem: 1. Severe iron deficiency anemia likely secondary to malabsorption Discharge Goals Goal(s): Diagnostic testing, Therapeutic intervention, Prevent Disease Progression Activity Recommendations Activity Limitations: resume your previous activity . Instructions / Follow-Up Instructions / Follow-Up MEDICATION CHANGES: 1. New medication; Ferrous sulphate (Iron supplements) 325 mg PO BID---> should be increased to TID once able to tolerate it well 2. New medication: Vitamin B12 1000 mcg daily 3, New medication; Folic acid 1 mg daily 4. New medication; Vitamin D 97797 units once a week x 6 weeks followed by 1000 units daily 5. Discontinued HCTZ/Lisinopril as BP has been stable without being on it MONITOR: 1. Vitamin D, B12, Iron studies, Folic acid at regular intervals 2. CBC in 4 weeks, Vitamin D level in 2-3 months FOLLOW UP 1. Follow up with Dr Salaazr 05/25/16 at 11:30 AM 2. Follow up with GI for further work up/colonoscopy. They will call for follow up date Current Hospital Diet Patient's current hospital diet: Low Sodium Diet (2gm Na), AHA Diet (Heart Healthy) Discharge Diet Recommended Diet: AHA Diet (Heart Healthy) (IRON RICH DIET), Low Sodium Diet ( 2gm Na) Pending Studies Studies pending at discharge: no Medical Emergencies . Who to Call and When: Medical Emergencies: If at any time you feel your situation is an emergency, please call 911 immediately. . Non-Emergent Contact Non-Emergency issues call your: Primary Care Provider . . "Provider Documentation" section prepared by Rosy Schmid. VTE Core Measure Inpt VTE Proph given/why not?: SCD's, Contraindicated
--- NOTE | 2016-05-22 13:19 | Discharge Summary ---
Discharge Summary Date of Service May 22, 2016. Discharge Summary Admission Date: May 20, 2016 at 18:53 Discharge Date: May 22, 2016 Discharge Disposition: Home Principal Diagnosis: 1. Severe iron deficiency anemia , likely secondary to malabsorption secondary to gastric bypass 2. Vitamin D deficiency, severe secondary to above 3. Hx of gastric bypass in 2002 Secondary Diagnoses/Problems: 1. Hypertension Procedures: Tele monitoring 4 units of PRBCs EGD on 05/22/16 Consultations: GI, Dr London Pending Studies/Follow-Up: Instructions / Follow-Up Instructions / Follow-Up MEDICATION CHANGES: 1. New medication; Ferrous sulphate (Iron supplements) 325 mg PO BID---> should be increased to TID once able to tolerate it well 2. New medication: Vitamin B12 1000 mcg daily 3, New medication; Folic acid 1 mg daily 4. New medication; Vitamin D 99780 units once a week x 6 weeks followed by 1000 units daily MONITOR: 1. Vitamin D, B12, Iron studies, Folic acid at regular intervals 2. CBC in 4 weeks, Vitamin D level in 2-3 months FOLLOW UP 1. Follow up with Dr Salazar 05/25/16 at 11:30 AM 2. Follow up with GI for further work up/colonoscopy. They will call for follow up date Medication Reconciliation New Medications: Cyanocobalamin (Vitamin B12 Tr) 1,000 Mcg Tab 1000 MCG PO DAILY for 30 Days, #3 TAB Folic Acid (Folic Acid) 1 Mg Tab 1 MG PO DAILY for 30 Days, #30 TAB Ergocalciferol (Vitamin D) 50,000 Interunit Cap 80959 INTERUNIT PO Q4D@2100 for 45 Days, #6 CAP Take 15402 units q once a week x 6 weeks followed by vitamin D 1000 units daily Ferrous Sulfate (Ferrous Sulfate) 325 Mg Tab 325 MG PO BIDM for 30 Days, #60 TAB 3 Refills Continued Medications: Albuterol Sulfate (Proair Respiclick) 108 Mcg/Act Aer 2 PUFF INH Q6H PRN for SOB/Wheezing Fish Oil ([place]-3) 1 Ea Cap 2 CAP PO DAILY, CAP Multiple Vitamins W/ Minerals (Hair/Skin/Nails) 1 Tab Tab 2 TABS PO DAILY Ondasetron Odt (Zofran Odt) 4 Mg Tab 8 MG SL Q6H for Nausea, TAB NEEDED : PLACE TWO 4MG TABS ON TONGUE, TWO TIMES A DAY. Promethazine (Phenergan Suppository) 25 Mg Supp 25 MG MD Q6H PRN for Nausea, #10 SUPP Simethicone (Bicarsim) 80 Mg Tab 80 MG PO QID PRN for Gas or Constipation Soy Isoflavone (Soy Isoflavones) 40 Mg Tab 40 MG PO DAILY Zinc Gluconate (Zinc) 50 Mg Tab 50 MG PO DAILY Discontinued Medications: Hydrochlorothiazide (Hctz) 25 Mg Tab 25 MG PO DAILY, TAB Lisinopril (Zestril) 10 Mg Tab 10 MG PO DAILY, TAB Potassium Gluconate (Potassium Gluconate) 595 Mg Tab 595 MG PO DAILY Admission Information HPI (per Admitting provider): 61 year old female who presents to the ER by referral of PCP for low hemoglobin. Patient reports she has been getting palpitations for the past 2 years. She reports she only noted them with exertion. She was seen by her PCP recently for this complaint. She was referred to cardiology who did a stress test and holter. Holter monitor showed PACs, PVCs, and two short runs of PSVT. Patient was unable to complete the test and also had ST depressions noted. Patient was then scheduled for a cardiac CT. Patient had labs drawn today that were ordered by her PCP that showed hgb 3.9. Patient was then referred to the ER for further evaluation. Patient notes a mild decrease in her activity tolerance but aside from the palpitations she denies other symptoms. No chest pain or chest pressure. She developed lower extremity edema last year and was placed on HCTZ and low Na+ diet and had improvement in the edema. She notes a 20 pound weight loss last year after making the dietary changes. She denies shortness of breath, lightheadedness, dizziness, diaphoresis, or syncopal events. No abdominal pain, nausea, vomiting, diarrhea, or constipation. She notes that after decreasing her salt intake last year, her stools are now lock tender in color and softer. No BRBPR or dark tarry stools. No fever or chills. She denies urinary symptoms. No recent travel. She had her last mammogram 2015. Last colonoscopy was in 2009. She has history of gastric bypass and has not had B12 injections in several years. In the ER, labs show hgb 3.9. Patient is hemodynamically stable. She has been ordered 2 units of PRBC. Physical Exam (per Admitting): General Appearance: no apparent distress Head: normocephalic Eyes: normal inspection ENT: hearing grossly normal Neck: supple, no JVD Respiratory/Chest: lungs clear, normal breath sounds, no respiratory distress Cardiovascular: regular rate, rhythm, no edema, normal peripheral pulses Abdomen/GI: normal bowel sounds, non tender, soft Extremities/Musculoskelatal: normal inspection, no calf tenderness Neurologic/Psych: no motor/sensory deficits, alert, normal mood/affect, oriented x 3 Skin: normal color, warm/dry Hospital Course SEVERE IRON DEFICIENCY ANEMIA : Patient was sent from PCP office for HB 3.9. Patient had gastric bypass done in 2002, does not follow up regularly with PCP, doesn't take supplements. Iron studies supportive of Iron deficiency anemia with Ferritin - 1, Iron-10, TIBC -500. Likely this is secondary to malabsorption secondary to gastric bypass with inadequate PCP and Labs follow up. Given the fact she is not much symptomatic with HB 3.9, this has been going on for a long time. No signs of GI bleeding -S/P 4 units PRBCs since admission --> HB 7.6-->7.7. -S/P EGD today- no anastomotic ulcer. GI will do Celiac sprue/Hp serology/ Copper level outpatient. Colonoscopy outpatient -Will give IV Venofer x 2nd dose today due to malabsorption issue/severity of iron deficiency anemia. To be discharged on Ferrous sulphate 325 mg PO BID, Folic acid 1 mg daily, Vitamin B12- 1000 mcg daily -Work up- Iron studies as above--> Iron deficiency, Vit D 8.7 with PTH 212, Vitamin B12-393, Colonoscopy in 2009- 1 polyp removed, hemorrhoids. No signs of active bleeding. -Monitor h & h outpatient VIT D DEFICIENCY : - Secondary to malabsorption from gastric bypass - PTH noted to be high, likely due to low Vit D - 50,000 units twice weekly x 12 doses; can recheck PTH /Vitamin D in 2-3 months - Monitor closely outpatient HX OF GASTRIC BYPASS IN 2002 : -Vitamin deficiencies as noted above. -Iron, Vit B12, Folic acid, Vit D supplements to be given on discharge. -Recommended regular outpatient blood work/PCP follow ups. Counseling done HTN : - BP on the lower side due to hypovolemia - holding HCTZ and Lisinopril and no indication on discharge as BP < 110 throughout hospital course ABNORMAL STRESS TEST, PSVT : - hx of recent stress test - was unable to complete and had ST depressions noted (? due to profound anemia) - has outpatient cardiac CT scheduled - on Holter patient had PACs, PVCs, and short run of PSVT - per review of record , patient was instructed to stop Lisinopril and start metoprolol succinate - she has not made this medication change yet - Outpatient work up /follow up DVT PROPHYLAXIS : - SCDs due to anemia DISPOSITION : Eager to be discharged Ok to discharge home after 1 unit PRBC transfusion/Venofer dose Total time spent on discharge = 35 minutes This includes examination of the patient, discharge planning, medication reconciliation, and communication with other providers. Discharge Instructions Discharge Goals Goal(s): Diagnostic testing, Therapeutic intervention, Prevent Disease Progression Activity Recommendations Activity Limitations: resume your previous activity . Instructions / Follow-Up Instructions / Follow-Up MEDICATION CHANGES: 1. New medication; Ferrous sulphate (Iron supplements) 325 mg PO BID---> should be increased to TID once able to tolerate it well 2. New medication: Vitamin B12 1000 mcg daily 3, New medication; Folic acid 1 mg daily 4. New medication; Vitamin D 81752 units once a week x 6 weeks followed by 1000 units daily MONITOR: 1. Vitamin D, B12, Iron studies, Folic acid at regular intervals 2. CBC in 4 weeks, Vitamin D level in 2-3 months FOLLOW UP 1. Follow up with Dr Salazar 05/25/16 at 11:30 AM 2. Follow up with GI for further work up/colonoscopy. They will call for follow up date Current Hospital Diet Patient's current hospital diet: Low Sodium Diet (2gm Na), AHA Diet (Heart Healthy) Discharge Diet Recommended Diet: AHA Diet (Heart Healthy) (IRON RICH DIET), Low Sodium Diet ( 2gm Na) Pending Studies Studies pending at discharge: no Medical Emergencies . Who to Call and When: Medical Emergencies: If at any time you feel your situation is an emergency, please call 911 immediately. . Non-Emergent Contact Non-Emergency issues call your: Primary Care Provider . . "Provider Documentation" section prepared by Rosy Schmid. VTE Core Measure Inpt VTE Proph given/why not?: SCD's, Contraindicated
[2016-05-22 14:21] VITALS: BP 112/63; PULSE 55; TEMP 37.1; O2SAT 100
== END 2016-05-22 15:00 | disposition home or self-care (01) | DRG 812 ==
LOC: ENRESERVTM → ENRESERVDT → C.EDB 15:47 → C.2T 18:53 → C.MS2W 05-21 11:19
PROVIDERS: ADMIT Hospitalist; ATTEND Internal Medicine
PROC: 0DJ08ZZ Inspection of Upper Intestinal Tract, Via Natural or Artificial Opening Endoscopic (ICD-10-PCS; principal; 2016-05-22 10:15)
DX: D50.9 Iron deficiency anemia, unspecified (principal); K91.2 Postsurgical malabsorption, not elsewhere classified; E86.1 Hypovolemia; E55.9 Vitamin D deficiency, unspecified; R94.39 Abnormal result of other cardiovascular function study; R60.9 Edema, unspecified; Z79.899 Other long term (current) drug therapy; Z80.1 Family history of malignant neoplasm of trachea, bronchus and lung; I10 Essential (primary) hypertension; Z80.8 Family history of malignant neoplasm of other organs or systems; Z98.84 Bariatric surgery status

== ENCOUNTER 2017-02-25 10:38 | Emergency (ER) | payer BC ==
[~2017-02-25] VITALS: Ht 175.3 cm; Wt 70.0 kg
[~2017-02-25 10:38] MED LIST: ALBU18002 INH; CYAN100028 PO; FLV1 PO; FRRS300 PO; MULT-580 PO; OMEG10007 PO; ONDA4TAB10 SL; PROM1SUP19 PR; SIME80TA PO; SOY40TAB5 PO; VTMD PO; ZINC1TAB PO
[2017-02-25 10:53] VITALS: TEMP 36.8; Ht 175.3 cm; Wt 70.0 kg
[2017-02-25] MEDS ORDERED: CHOL100010 PO (11:27)
[2017-02-25] MEDS ORDERED: POTA99TA PO (11:27)
[2017-02-25] MEDS ORDERED: VITACAP26 PO (11:27)
--- NOTE | 2017-02-25 11:34 | DIAGNOSTIC IMAGING REPORT ---
R KNEE 1 OR 2 VIEWS ROUTINE CLINICAL HISTORY: 62 years-old Female presenting with RIGHT PATELLA INJURY S/P A FALL. TECHNIQUE: Frontal and lateral views of the right knee were obtained. COMPARISON: None. FINDINGS: Transversely oriented horizontal fracture through the inferior third of the patella with 2.2 cm of diastases at the anterior cortical margin of the fracture plane secondary to retraction of the opposing fracture fragments. No evidence of an avulsion fracture at the tibial tuberosity. Diffuse subcutaneous and soft tissue swelling. Small knee joint effusion may be present. No additional fracture. No significant degenerative change. IMPRESSION: Horizontally oriented fracture through the inferior third of the patella with 2.2 cm of diastases at the fracture plane. Electronically signed by: Zachery Deluna M.D. 02/25/2017 11:32 AM Dictated Date/Time: 02/25/2017 11:31 AM
[2017-02-25 12:41] VITALS: BP 131/72; PULSE 93; O2SAT 97
--- NOTE | 2017-02-25 12:53 | EMERGENCY ROOM VISIT NOTE ---
History First contact with patient: 10:58 Chief Complaint: KNEEPAIN Stated Complaint: FALL,RIGHT KNEE INJURY History of Present Illness The patient is a 62 year old female who presents to the Emergency Room with complaints of right anterior knee pain. The patient reports that she took her dog outside last night and slipped on ice, falling onto the front of her knee. The patient had difficulty getting back into her condo because of pain. She also tried to take the trash out this morning and literally had to crawl on the ground. She denies any pain extending into the hip or back. She denies paresthesias or numbness of the right lower extremity. She rates her discomfort a 10 out of 10. Review of Systems 10 system review was performed and was negative except for pertinent positives and negatives as indicated in history of present illness Past Medical/Surgical History Medical Problems: (1) Dyslipidemia (2) HTN (hypertension) (3) PSVT (paroxysmal supraventricular tachycardia) Surgical Problems: (1) History of gastric bypass (2) History of hysterectomy (3) History of Ina-en-Y gastric bypass (4) Hx of tubal ligation Family History FH: liver cancer FATHER ( at age 70) FH: lung cancer MOTHER ( at age 48, was heavy smoker) Social History Smoking Status: Never Smoker Alcohol Use: occasionally Drug Use: none Marital Status: Housing Status: lives alone Occupation Status: employed Current/Historical Medications Scheduled Cholecalciferol (Vitamin D), 1,000 UNITS PO DAILY Cyanocobalamin (Vitamin B12 Tr), 1,000 MCG PO DAILY Ferrous Sulfate (Ferrous Sulfate), 325 MG PO BIDM Fish Oil ([place]-3), 2 CAP PO DAILY Folic Acid (Folic Acid), 1 MG PO DAILY Multiple Vitamins W/ Minerals (Hair/Skin/Nails), 2 TABS PO DAILY Ondasetron Odt (Zofran Odt), 8 MG SL Q6H Potassium (Potassium), 99 MG PO DAILY Soy Isoflavone (Soy Isoflavones), 40 MG PO DAILY Vitamins C & E (Vitamin C), 1 TAB PO DAILY Zinc Gluconate (Zinc), 50 MG PO DAILY Scheduled PRN Albuterol Sulfate (Proair Respiclick), 2 PUFF INH Q6H PRN for SOB/Wheezing Promethazine (Phenergan Suppository), 25 MG MO Q6H PRN for Nausea Simethicone (Bicarsim), 80 MG PO QID PRN for Gas or Constipation Physical Exam Vital Signs Date Time Temp Pulse Resp B/P (MAP) Pulse Ox O2 Delivery O2 Flow Rate FiO2 02/25/17 10:53 36.8 67 17 154/95 98 Room Air Physical Exam CONSTITUTIONAL: Healthy and well nourished. Alert and oriented X 3 with positive affect. HEENT: Normocephalic, atraumatic. Pupils equal, round and reactive. NECK: Full active range of motion without discomfort. RESPIRATORY: Clear to auscultation bilaterally with no wheezing, crackles, rhonchi or stridor. CARDIOVASCULAR: Regular rate and rhythm with no murmurs, rubs or gallops. MUSCULOSKELETAL: Examination shows edema and ecchymosis over the right anterior knee. She has focal tenderness of the patella with a mild joint effusion. She has no focal tenderness to the medial or lateral joint line. Collateral ligaments are intact. No tenderness to palpation through the quadriceps tendon or proximal leg. Pedal pulses are intact. INTEGUMENTARY: No rash or other significant dermatologic conditions noted. NEUROLOGIC: No focal neurologic deficits noted. Right lower extremity is sensory intact. Medical Decision & Procedures ER Provider Diagnostic Interpretation: My interpretation of right knee x-rays confirms a transversely oriented inferior patella fracture with no evidence for subluxation. Radiologist report is as follows: R KNEE 1 OR 2 VIEWS ROUTINE CLINICAL HISTORY: 62 years-old Female presenting with RIGHT PATELLA INJURY S/P A FALL. TECHNIQUE: Frontal and lateral views of the right knee were obtained. COMPARISON: None. FINDINGS: Transversely oriented horizontal fracture through the inferior third of the patella with 2.2 cm of diastases at the anterior cortical margin of the fracture plane secondary to retraction of the opposing fracture fragments. No evidence of an avulsion fracture at the tibial tuberosity. Diffuse subcutaneous and soft tissue swelling. Small knee joint effusion may be present. No additional fracture. No significant degenerative change. IMPRESSION: Horizontally oriented fracture through the inferior third of the patella with 2.2 cm of diastases at the fracture plane. ED Course Patient history and physical exam were performed. Nurse's notes were reviewed. Vital signs were reviewed and were normal. The patient refused any analgesics while in the emergency department. X-rays of the right knee confirms a displaced patella fracture. A knee immobilizer was applied, and walker dispensed. The patient was encouraged to intermittently apply ice and elevate the knee for swelling and pain. She was encouraged to alternate ibuprofen and Tylenol as needed for pain. The patient refused any prescription analgesics. She was instructed to follow-up with [facility] for further reevaluation and management. The patient was happy with plan of care, voiced understanding of all discharge instructions, and rated her discomfort a 7 out of 10 at the conclusion of my exam. The patient was also advised that her blood pressure was elevated at 154/95 while in the emergency department. Although this may be secondary to pain, she was encouraged to follow-up with her PCP for a blood pressure recheck. Medical Decision Medication Reconcilliation Current Medication List: was personally reviewed by me Blood Pressure Screening Patient's blood pressure: Elevated blood pressure Blood pressure disposition: Elevated BP felt to be situational, Referred to PCP Impression Primary Impression: Right patella fracture Additional Impression: Fall due to ice or snow Departure Information Referrals No Doctor, Assigned (PCP) Patient Instructions [facility] Problem Qualifiers Primary Impression: Right patella fracture Encounter type: initial encounter Fracture type: closed Fracture morphology : transverse Fracture alignment: displaced Qualified Codes: S82.031A - Displaced transverse fracture of right patella, initial encounter for closed fracture Additional Impression: Fall due to ice or snow Encounter type: initial encounter Qualified Codes: W00.9XXA - Unspecified fall due to ice and snow, initial encounter
[2017-02-26] MEDS ORDERED: MULT-506 PO (15:41)
[2017-02-26] MEDS ORDERED: FERR325T5 PO (15:41)
[2017-02-28] MEDS ORDERED: ASPEC325 PO (08:28)
[2017-02-28] MEDS ORDERED: TRAM-453 PO (08:28)
== END 2017-02-25 12:49 | disposition home or self-care (01) ==
LOC: C.EDB 10:39 → C.EDD 12:49
DX: S82.001A Unspecified fracture of right patella, initial encounter for closed fracture (principal); W01.0XXA Fall on same level from slipping, tripping and stumbling without subsequent striking against object, initial encounter; E78.5 Hyperlipidemia, unspecified; I10 Essential (primary) hypertension; Z98.84 Bariatric surgery status; Z90.710 Acquired absence of both cervix and uterus; Z98.51 Tubal ligation status; Z88.8 Allergy status to other drugs, medicaments and biological substances; Z85.05 Personal history of malignant neoplasm of liver; Z85.118 Personal history of other malignant neoplasm of bronchus and lung

== ENCOUNTER → 2017-02-28 | Day surgery (SDC) | payer BC ==
[2017-02-26 15:42] VITALS: Ht 175.3 cm; Wt 70.5 kg
[~2017-02-28] VITALS: Ht 175.3 cm; Wt 70.5 kg
[~2017-02-28] MED LIST changes: +ASPEC325 PO; +ATROPINE SULFATE 0.1 MG/ML 5ML SYR IV PRN; +BUPIVACAINE/EPINEPHRINE 0.5% MPF 1:200,000 30 ML VIAL ONE; +CEFAZOLIN 2000MG IV PUSH 10 ML IV SCH; +CEFAZOLIN SOD 1 GM VIAL ONE; +CEFAZOLIN SOD 1000MG/5 ML IV PUSH IV ONE; -CYAN100028 PO; +DEXAMETHASONE SOD INJ 4 MG/ML VIAL ONE; +EpHEDrine SULFATE 50MG/5ML SYR ONE; +EpHEDrine SULFATE INJ 50 MG/ML AMP IV PRN; +FENTANYL CITRATE INJ 50 MCG/1 ML 2 ML VIAL IV PRN; +FENTANYL CITRATE INJ 50 MCG/1 ML 2 ML VIAL ONE; +FERR325T5 PO; -FLV1 PO; -FRRS300 PO; +KETOROLAC TROMETHAMINE 30 MG/ML VIAL ONE; +LACTATED RINGER'S 1000ML 1,000 ML IV SCH; +LIDOCAINE HCL 2% 2 ML VIAL (20MG/ML) ONE; +MIDAZOLAM HCL 1 MG/ML 2ML VIAL ONE; +MULT-506 PO; -MULT-580 PO; -OMEG10007 PO; -ONDA4TAB10 SL; +ONDANSETRON INJ 2 MG/ML 2 ML VIAL IV PRN; +ONDANSETRON INJ 2 MG/ML 2 ML VIAL ONE; -PROM1SUP19 PR; +PROMETHAZINE HCL INJ 6.25 MG in SODIUM CHLORIDE 0.9% 50ML 50 ML IV PRN; +PROPOFOL IV EMULSION 10 MG/ML 20 ML VIAL IV ONE; -SIME80TA PO; +SODIUM CHLORIDE 0.9% 1000ML 1,000 ML IV SCH; -SOY40TAB5 PO; +TRAM-453 PO; +TRAMADOL HCL 50 MG TAB PO PRN; -VTMD PO; -ZINC1TAB PO
--- NOTE | 2017-02-28 06:54 | History & Physical Bridge - SC ---
H&P Re-Evaluation Bridge Note: I have examined the patient, reviewed the History & Physical and in the interval since the performance of the History & Physical I have noted the following changes of clinical significance: No changes noted
--- NOTE | 2017-02-28 08:28 | [facility] Post Operative Brief Note ---
Immediate Operative Summary Operative Date Feb 28, 2017. Pre-Operative Diagnosis Right patella fracture - inferior pole Post-Operative Diagnosis Same as preop Procedure(s) Performed Right Knee Partial Patellectomy, Patella Tendon Repair Surgeon Dr. López Film Masker Surgeon(s) Eleazar Hyde PA-C Estimated Blood Loss 20 mL Findings Displaced patella fracture Specimens None Anesthesia General Complication(s) None Disposition Recovery Room / PACU
--- NOTE | 2017-02-28 08:30 | Discharge Instructions-SurgCtr ---
Discharge Instructions Date of Service Feb 28, 2017. Visit Reason for Visit: Right Patella Fracture Discharge Discharge Diagnosis / Problem: RIGHT PATELLA FX Discharge Goals Goal(s): Improve function, Therapeutic intervention Activity Recommendations Activity Limitations: per Instructions/Follow-up section Weightbearing Status: Right weightbearing (as tolerated WITH BRACE ) Anesthesia . Post Anesthesia Instructions: If you have had General Anesthesia or IV Sedation: * Do not drive today. * Resume driving when surgeon permits. * Do not make important decisions or sign legal documents today. * Call surgeon for: 1. Temperature elevations greater than 101 degrees F. 2. Uncontrollable pain. 3. Excessive bleeding. 4. Persistent nausea and vomiting. 5. Medication intolerance (nausea, vomiting or rash). * For nausea and vomiting use only clear liquids such as: tea, soda, bouillon until nausea subsides, then gradually increase diet as tolerated. * If you have any concerns or questions, call your surgeon's office. If physician is unavailable and it is an emergency, call 911 or go to the nearest emergency room. . Instructions / Follow-Up Instructions / Follow-Up MEDICATIONS: * Resume previous medications unless instructed otherwise by your surgeon. * Always take pain medication on a full stomach or with food to avoid upset stomach. * Do not drink alcohol or drive while taking narcotics. * Ibuprofen or Tylenol may be taken if narcotic not needed. SPECIAL CARE INSTRUCTIONS: __ None _X_ Keep extremity elevated and iced x 48 hours; apply ice 20-30 minutes 8-10 times/day. May remove at night. _X_ Crutches __ May discard when able _X_ Brace/Post-op shoe _X_ 24 hrs/day __ Remove at night _X_ Dressing __ Maintain until seen in office, may shower with plastic over site _X_ Remove dressings in 48 hours and then may shower __ Cover incisions with band-aids after showering __ Do not remove steri-strips Call physician if chills or temperature rises above 102 degrees or pain unrelieved by prescribed pain medications. Office [phone] FOLLOW UP IN 2 WEEKS Diet Recommendations Home Diet: resume previous diet Procedures Procedures Performed: Right Knee Partial Patellectomy, Patella Tendon Repair Pending Studies Studies pending at discharge: no Medical Emergencies . Who to Call and When: Medical Emergencies: If at any time you feel your situation is an emergency, please call 911 immediately. . Non-Emergent Contact Non-Emergency issues call your: Surgeon . . "Provider Documentation" section prepared by Pop Hyde. .
--- NOTE | 2017-02-28 09:11 | OPERATIVE REPORT ---
DATE OF OPERATION: 02/28/2017 SURGEON: Bautista López MD MAINTENANCE PAINTER: VINH Whitney PREOPERATIVE DIAGNOSIS: Right displaced inferior pole patella fracture. POSTOPERATIVE DIAGNOSIS: Right displaced slightly comminuted inferior pole patellar fracture. PROCEDURES PERFORMED: Right knee partial patellectomy and patellar tendon repair. COMPLICATIONS: None. ESTIMATED BLOOD LOSS: 20 mL. TOURNIQUET TIME: 41 minutes at 300 mmHg. ANESTHESIA: General. SPECIMENS: None. OPERATIVE INDICATIONS: The patient is a 62-year-old female who was out walking her dog on Sunday evening when she slipped on some black ice and injured her right knee. She was taken to the emergency room, where x-rays revealed a displaced patellar fracture. The patient indicated for surgical treatment. OPERATIVE PROCEDURE: The patient was taken to the operating room, identified and placed on the operating table in the supine position. All contact areas were appropriately padded. IV antibiotics were provided by anesthesia team. General anesthetic was implemented by anesthesia team. Right thigh tourniquet was then placed. The right leg was then scrubbed with Hibiclens and then prepped with ChloraPrep and draped in the usual sterile fashion. The right leg was elevated and exsanguinated with Esmarch and tourniquet was placed at 300 mmHg. An anterior approach to the knee was then performed through a slightly curvilinear incision over the anteromedial aspect of the patella. I did make this a little bit medial due to abrasion in the front of her knee to stay medial to it. Sharp dissection was carried out through the subcutaneous tissues down to the level of the extensor mechanism. The subcutaneous tissues were mobilized. The medial and lateral retinacular tears were exposed. I then removed the blood clot from the fracture site. I also removed the inferior pole bone pieces. There was one large and then several small bony pieces. I then drilled 3 holes to the inferior pole of the patella to exit the superior aspect of the patella and passed some passing sutures through them. I then placed two #5 Ti-Cron sutures using a [place] stitch technique in the patellar tendon. I extended these sutures through the patella holes and then tied them on top of the patella after reapproximating the patellar tendon back to the bone. This got excellent approximation. I could bend the knee to 90 degrees and there were no signs of separation of the repair. I then repaired the medial and lateral retinacular tears with #2 Ti-Cron suture. The wound was irrigated extensively. I injected locally with 30 mL of 0.5% Marcaine with epinephrine. The tourniquet was then let down for a tourniquet time of 41 minutes. Hemostasis was assured with use of electrocautery. The subcutaneous tissues were then closed with 2-0 Dexon suture in a buried interrupted fashion. Skin was closed with 3-0 nylon suture in a combination of horizontal and simple fashion. The leg was then cleaned and dried and a sterile dressing of Xeroform, 4 x 4's, sterile cast padding, Herminio bandage and knee immobilizer applied. The patient then brought out of general anesthesia and transferred to the recovery room in stable condition. The patient tolerated the procedure well with no complications. All needle and sponge counts were correct at the end of the operation. I attest to the content of the Intraoperative Record and any orders documented therein. Any exceptions are noted below. ALECIA
[2017-02-28 10:51] VITALS: BP 164/92; PULSE 67; TEMP 36.4; O2SAT 98
--- NOTE | 2017-02-28 11:04 | Anesthesiology Progress Note ---
Anesthesia Post Op Note Date & Time Feb 28, 2017 at 11:04 Vital Signs Pain Intensity: 1 Vital Signs Past 12 Hours Date Time Temp Pulse Resp B/P (MAP) Pulse Ox O2 Delivery O2 Flow Rate FiO2 02/28/17 10:51 36.4 67 16 164/92 (116) 98 Room Air 02/28/17 09:50 36.5 71 14 163/93 (116) 100 Room Air 02/28/17 09:37 75 18 97 02/28/17 09:37 74 18 02/28/17 09:36 169/92 02/28/17 09:32 69 13 96 02/28/17 09:32 69 13 02/28/17 09:31 170/92 02/28/17 09:27 67 15 97 02/28/17 09:27 67 15 02/28/17 09:26 167/92 02/28/17 09:22 36.7 77 16 166/103 96 Room Air 02/28/17 09:22 70 14 97 02/28/17 09:22 70 14 02/28/17 09:21 72 8 02/28/17 09:21 72 8 166/103 96 02/28/17 09:16 78 13 176/97 100 02/28/17 09:16 79 13 02/28/17 09:11 70 11 02/28/17 09:11 70 11 177/97 100 02/28/17 09:06 71 12 02/28/17 09:06 71 12 177/102 100 02/28/17 09:01 72 9 02/28/17 09:01 72 9 182/97 100 02/28/17 08:56 71 8 165/95 100 02/28/17 08:56 71 8 02/28/17 08:51 71 7 02/28/17 08:51 70 7 165/95 100 02/28/17 08:46 70 12 165/94 100 02/28/17 08:46 71 12 02/28/17 08:41 75 7 156/94 100 02/28/17 08:41 75 7 02/28/17 08:36 74 12 171/92 100 02/28/17 08:36 74 12 02/28/17 08:31 75 12 164/94 100 02/28/17 08:31 75 12 02/28/17 08:27 158/92 02/28/17 08:26 36.6 79 16 158/79 100 6 02/28/17 06:30 36.9 76 16 159/80 (106) 98 Room Air Notes Mental Status: alert / awake / arousable, participated in evaluation Pt Amnestic to Procedure: Yes Nausea / Vomiting: adequately controlled Pain: adequately controlled Airway Patency, RR, SpO2: stable & adequate BP & HR: stable & adequate Hydration State: stable & adequate Anesthetic Complications: no major complications apparent
== END | disposition home or self-care (01) ==
LOC: X.SURG 06:09
PROVIDERS: ATTEND Orthopaedic Surgery Sports Medicine
DX: S82.041A Displaced comminuted fracture of right patella, initial encounter for closed fracture (principal); D50.9 Iron deficiency anemia, unspecified; J45.909 Unspecified asthma, uncomplicated; Z79.899 Other long term (current) drug therapy; Z98.84 Bariatric surgery status; W01.0XXA Fall on same level from slipping, tripping and stumbling without subsequent striking against object, initial encounter

== ENCOUNTER → 2017-11-02 | Outpatient (CLI) | payer BC, OTHER ==
[~2017-11-02] MED LIST changes: -ATROPINE SULFATE 0.1 MG/ML 5ML SYR IV PRN; -BUPIVACAINE/EPINEPHRINE 0.5% MPF 1:200,000 30 ML VIAL ONE; -CEFAZOLIN 2000MG IV PUSH 10 ML IV SCH; -CEFAZOLIN SOD 1 GM VIAL ONE; -CEFAZOLIN SOD 1000MG/5 ML IV PUSH IV ONE; -DEXAMETHASONE SOD INJ 4 MG/ML VIAL ONE; -EpHEDrine SULFATE 50MG/5ML SYR ONE; -EpHEDrine SULFATE INJ 50 MG/ML AMP IV PRN; -FENTANYL CITRATE INJ 50 MCG/1 ML 2 ML VIAL IV PRN; -FENTANYL CITRATE INJ 50 MCG/1 ML 2 ML VIAL ONE; -KETOROLAC TROMETHAMINE 30 MG/ML VIAL ONE; -LACTATED RINGER'S 1000ML 1,000 ML IV SCH; -LIDOCAINE HCL 2% 2 ML VIAL (20MG/ML) ONE; -MIDAZOLAM HCL 1 MG/ML 2ML VIAL ONE; -ONDANSETRON INJ 2 MG/ML 2 ML VIAL IV PRN; -ONDANSETRON INJ 2 MG/ML 2 ML VIAL ONE; -PROMETHAZINE HCL INJ 6.25 MG in SODIUM CHLORIDE 0.9% 50ML 50 ML IV PRN; -PROPOFOL IV EMULSION 10 MG/ML 20 ML VIAL IV ONE; -SODIUM CHLORIDE 0.9% 1000ML 1,000 ML IV SCH; -TRAM-453 PO; -TRAMADOL HCL 50 MG TAB PO PRN
--- NOTE | 2017-11-05 13:55 | MAMMOGRAPHY REPORT ---
BILATERAL DIGITAL SCREENING MAMMOGRAM TOMOSYNTHESIS WITH CAD: 11/02/2017 CLINICAL HISTORY: Routine screening. Patient has no complaints. TECHNIQUE: Breast tomosynthesis in addition to standard 2D mammography was performed. Current study w as also evaluated with a Computer Aided Detection (CAD) system. COMPARISON: No prior exams are available for comparison. BREAST COMPOSITION: There are scattered areas of fibroglandular density in both breasts. FINDINGS: There is a focal asymmetry within the left anterior breast subareolar region, which could represent t he nipple out of profile, however, additional imaging evaluation with spot compression tomosynthesis views, repeat cc view with the nipple in profile, and possible targeted ultrasound are recommended fo r further evaluation. Additionally, there is a focal asymmetry within the right upper outer quadrant , which may represent normal overlapping fibroglandular tissue although spot compression tomosynthesi s views and possible breast ultrasound are recommended for further evaluation. 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 IMPRESSION: ACR BI-RADS CATEGORY 0: INCOMPLETE EVALUATION: NEED ADDITIONAL IMAGING EVALUATION Bilateral breast asymmetries, for which additional imaging evaluation is recommended. The patient wi ll be called to schedule an appointment. Some breast cancers are not detected with mammography. A negative mammographic report should not long y biopsy if a clinically suggestive mass is present. Heydi Munguia M.D. /:11/03/2017 10:55:31 Supervisor Irrigation: RT Justen(R)(M)(BD), [facility] letter sent: Addl Imaging 0 BI-RADS Code: ACR BI-RADS Category 0: Incomplete Evaluation: Need Additional Imaging Evaluation
== END | disposition home or self-care (01) ==
LOC: C.MAMM 14:53
PROVIDERS: ATTEND Family Medicine
DX: Z12.31 Encounter for screening mammogram for malignant neoplasm of breast (principal); N64.89 Other specified disorders of breast